=== PATIENT | male | born 1975 | race Caucasian/White ===

== ENCOUNTER 2021-08-24 21:43 | Emergency (ER) | payer BC ==
[~2021-08-24] VITALS: Ht 185.4 cm; Wt 90.0 kg
[~2021-08-24 21:43] MED LIST: NO MEDS
[2021-08-24] MEDS ORDERED: IBUPROFEN600 MG PO (23:20)
[2021-08-24 23:25] VITALS: BP 113/71
== END 2021-08-24 23:35 | disposition home or self-care (01) | DRG 605 ==
LOC: ED 21:43
DX: S90.31XA Contusion of right foot, initial encounter (principal); S90.01XA Contusion of right ankle, initial encounter; W55.22XA Struck by cow, initial encounter; Y93.K9 Activity, other involving animal care; Y92.009 Unspecified place in unspecified non-institutional (private) residence as the place of occurrence of the external cause; Z86.16 Personal history of COVID-19

== ENCOUNTER 2024-06-24 12:01 | Emergency (ER) | payer SELFPAY ==
[~2024-06-24] VITALS: Ht 185.4 cm; Wt 81.6 kg
[2024-06-24] VITALS (8 sets, daily range): BP systolic 124–150; BP diastolic 72–96
[~2024-06-24 12:01] MED LIST changes: +IBUPROFEN600 MG PO
== END 2024-06-24 14:30 | disposition home or self-care (01) | DRG 605 ==
LOC: ED 12:01
DX: S80.12XA Contusion of left lower leg, initial encounter (principal); W55.22XA Struck by cow, initial encounter